=== PATIENT | male | born 2000 | race African-American/Black ===

== ENCOUNTER 2022-05-04 21:35 | Emergency (ER) | payer BC ==
[2022-05-04] MEDS ORDERED: Lidocaine 1% 10 ML MDV INJECT ONE (22:00)
[2022-05-04] MEDS ORDERED: Amoxicillin/Clavulanate K 875-125 MG Tab PO ONE (22:04)
[2022-05-04] MEDS ORDERED: Diphtheria,Pertussis(Acell),Tetanus Vaccine 0.5 ML Syringe IM ONE (22:55)
== END 2022-05-04 23:35 | disposition home or self-care (01) ==
LOC: JD.ED 21:35
DX: S61.451A Open bite of right hand, initial encounter (principal); Z79.899 Other long term (current) drug therapy; Z23 Encounter for immunization; W50.3XXA Accidental bite by another person, initial encounter
CPT/HCPCS: 12001; 73130; 90471; 90715; 99283; A9270; 29125